=== PATIENT | female | born 1950 | race Caucasian/White ===

== ENCOUNTER 2016-10-09 10:18 | Inpatient (IN) | payer MEDICARE, OTHER ==
[2016-10-09] MEDS ORDERED: ASPIRIN 325 MG TABLET ONE (10:39)
[2016-10-09] MEDS ORDERED: PRAV40TA3 PO (10:58)
[2016-10-09] MEDS ORDERED: PROP40TA7 PO (10:58)
[2016-10-09] MEDS ORDERED: ASPIRIN 325 MG TABLET PO ONE (11:00)
[2016-10-09] MEDS ORDERED: ONDANSETRON HCL/PF 4 MG/2 ML VIAL IVP PRN (13:00)
[2016-10-09] MEDS ORDERED: HYDROCODONE/APAP 5/325MG 1 EACH TABLET PO PRN (13:00)
[2016-10-09] MEDS ORDERED: MAGNESIUM HYDROXIDE 30 ML UDC PO PRN (13:00)
[2016-10-09] MEDS ORDERED: MAG HYDROX/AL HYDROX/SIMETH 30 ML UDC PO PRN (13:00)
[2016-10-09] MEDS ORDERED: ACETAMINOPHEN 325 MG TABLET PO PRN (13:00)
[2016-10-09] MEDS ORDERED: Z GUARD REMEDY 2 OZ OINT TP PRN (13:00)
[2016-10-09] MEDS ORDERED: ZOLPIDEM TARTRATE 5 MG TABLET PO PRN (13:00)
[2016-10-09] MEDS: ASPIRIN 81 MG TAB.CHEW PO SCH (15:27)
[2016-10-09] MEDS: ENOXAPARIN SODIUM 40 MG/0.4 ML DISP.SYRIN SQ SCH (15:36)
[2016-10-09] MEDS: PROPRANOLOL HCL 40 MG TABLET PO SCH (17:24)
[2016-10-10] MEDS ORDERED: PANTOPRAZOLE 40 MG TABLET.DR PO SCH (07:30)
[2016-10-10] MEDS ORDERED: REGADENOSON 0.4 MG/5 ML DISP.SYRIN IVP ONE (08:00)
[2016-10-10] MEDS ORDERED: ATORVASTATIN 10 MG TABLET PO SCH (09:00)
[2016-10-10] MEDS: PROPRANOLOL HCL 40 MG TABLET PO SCH (09:00)
[2016-10-10] MEDS: ASPIRIN 81 MG TAB.CHEW PO SCH (10:30)
[2016-10-10] MEDS: ENOXAPARIN SODIUM 40 MG/0.4 ML DISP.SYRIN SQ SCH (14:38)
== END 2016-10-10 17:00 | disposition home or self-care (01) | DRG 303 ==
DX: I25.10 Atherosclerotic heart disease of native coronary artery without angina pectoris (principal); E11.9 Type 2 diabetes mellitus without complications; E78.5 Hyperlipidemia, unspecified; K21.9 Gastro-esophageal reflux disease without esophagitis; I10 Essential (primary) hypertension; Z90.49 Acquired absence of other specified parts of digestive tract; R25.1 Tremor, unspecified